=== PATIENT | male | born 1965 | race Caucasian/White ===

== ENCOUNTER 2024-03-29 09:39 | Inpatient (IN) ==
--- OUTSIDE RECORDS SUMMARY | 2024-03-29 09:44 | External Medical Summary | Summary of Care ---
Author Name Unknown Organization [facility] Address [address] [place] [address] Phone [phone] Care Team Providers Care Elevator Constructor Hydraulic Name Role Phone Araceli Calderón DO Primary Care Provider [phone] Reason for Visit * Reason Comments eRx-Medication Refill Encounter Details Date Type Department Care Team (Late st Contact Info) Description 03/01/2024 Refill Family Practice [facility] [address] [place] [address] Araceli Calderón DO [address] [place] [address] Dyslipidemia; Atherosclerosis of [place] coronary artery of [place] heart without angina pectoris Allergies Active Allergy Reactions Criticality Noted Date Comments Metoprolol Itching 06/13/2011 documented as of this encounter (statuses as of 03/02/2024) Medications Medication Sig Dispensed Refills Start Date End Date Status ASPIRIN 81 MG PO CHEWIndications:Oth er specified forms of chronic ischemic heart disease One pill by mouth once a day with food 100 Tab 5 12/11/2010 Active MULTIVITAMINS PO TABS one tablet daily Active FISH OIL 1000 MG PO CPDR one daily Active VITAMIN B COMPLEX PO TABS one tablet daily Active Sildenafil Citrate 50 MG Oral TabletIndications:V asculogenic erectile dysfunction, unspecified vasculogenic erectile dysfunction type Take 1 Tablet by mouth daily as needed for Erectile Dysfunction. 10 Tablet 3 03/25/2023 Active Levothyroxine Sodium 88 MCG Oral Tablet (Levoxyl)Indication s:Acquired hypothyroidism Take 1 Tablet by mouth in the morning. (at least 30 min prior to breakfast or other meds). 90 Tablet 3 07/09/2023 Active Rosuvastatin Calcium 40 MG Oral Tablet (Crestor)Indication s:Dyslipidemia,Athe rosclerosis of [place] coronary artery of [place] heart without angina pectoris Take 1 Tablet by mouth in the morning. 90 Tablet 1 03/02/2024 Active Rosuvastatin Calcium 40 MG Oral Tablet (Crestor)Indication s:Dyslipidemia,Athe rosclerosis of [place] coronary artery of [place] heart without angina pectoris Take 1 Tablet by mouth in the morning. 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 with angina pectoris 05/12/2018 Acquired hypothyroidism 05/12/2018 Coronary atherosclerosis 06/13/2011 Overview: Seeing dr lehman with LAD 90 % S/P angioplasty with stent 06/13/2011 OTHER Overview: LAD mid / 90 % block documented as of this encounter (statuses as of 03/02/2024) Resolved Problems Problem Noted Date Diagnosed Date Resolved Date Dyslipidemia, goal LDL below 130 06/13/2011 documented as of this encounter (statuses as of 03/02/2024) Immunizations Name Administration Dates Next Due Covid-19 Ad26, Single Dose (Trevor/J&J) 021 TDAP (age 10 and older)(Boostrix) 11/07/2014 documented as of this encounter Social History Tobacco Use Types Packs/Day Years Used Date Smoking Tobacco: Never Smokeless Tobacco: Never Alcohol Use Standard Drinks/Week Comments Yes 1.7 (1 standard drink = 0.6 oz p ure alcohol) 1x week PHQ-2 Answer Date Recorded PHQ-2 Score 0 05/15/2020 Utilities Answer Date Recorded Do you have trouble paying y our heating, water, or electric bill? (Adult - for ages 18 years and over) Not on file 01/13/2024 Is your family able to pay t he heat, water, or electric bill? (Household - for ages 0-17 years) Not on file 01/13/2024 Does your family have access to good internet? (Household - for ages 0-17 years) Not on file 01/13/2024 Social Connections Answer Date Recorded How often do you feel lonely or isolated from those around you? (Adult - for ages 18 years and over) Not on file 01/13/2024 Sex and Gender Information Value Date Recorded Sex Assigned at Not on file Gender Identity Not on file Sexual Orientation Not on file Job Start Date Occupation Industry Not on file Not on file Not on file documented as of this encounter Miscellaneous Notes * Telephone Encounter - Miller Silva [facility] - 03/02/2024 12:21 PM EDT Signed Prescriptions: Disp Refills Rosuvastatin Calcium 40 MG Oral Tablet (Cr*90 Tab*1 Sig: Take 1 Tablet by mouth in the morning.Authorizing Provider: ARACELI CALDERÓN User: MILLER SILVA documented in this encounter Plan of Treatment Upcoming Encounters Date Type Department Care Team (Late st Contact Info) Description 05/19/2024 3:20 PM EDT Office Visit Family Practice [facility] [address] [place] [address] Araceli Calderón DO [address] [place] [address] Scheduled Procedures Name Priority Associated Diagnoses Date/Ti me COLONOSCOPY FLEXIBLE PROXIMA L DIAGNOSTIC Recall Special screening for malignant neoplasms, colon Health Maintenance Due Date Last Done Comments Hepatitis B Vaccine (1 of 3 - 19+ 3-dose series) 10/27/1983 Cologuard 2009 Fecal Occult Blood Test 2009 Sigmoidoscopy 2009 Zoster Vaccines (1 of 2) 2014 Depression Screening 05/15/2021 05/15/2020 COVID-19 Vaccine (2 - 2022- season) 2023 01/11/2021 Influenza Vaccine (FLU shot) (#1) 2024 TSH 07/04/2024 07/04/2023, 12/03/2022, 06/29/2021, Additional history exists DTaP,Tdap,and Td Vaccines (2 - Td or Tdap) 11/07/2024 11/07/2014 Colonoscopy 12/21/2024 12/21/2014, 12/21/2014 Colorectal Cancer Screening 12/21/2024 Diabetes Screening 07/04/2026 07/04/2023, 1 09/05/2021, 06/29/2021, Additional history exists HPV (Gardasil) Vaccine Aged Out No lo nger eligible based on patient's age to complete this topic MENINGOCOCCAL (MENACTRA/MENVEO) Aged Out No longer eligible based on patient's age to complete this topic Pneumococcal Vaccine: Pediatrics (0 to 5 Years) and At-Risk Patients (6 to 64 Years) Aged Out No longer eligible based on patient's age to complete this topic documented as of this encounter Medical Devices Not on filedocumented as of this encounter Visit Diagnoses Diagnosis Dyslipidemia Other and unspecified hyperlipidemia Atherosclerosis of [place] coronary artery of [place] heart without angina pectoris documented in this encounter Care Teams Elevator Constructor Hydraulic Relationship Specialty Start Date End Date Araceli Calderón DO [address] [place] [address] PCP - General Family Medicine 05/11/19 documented as of this encounter
[2024-03-29 10:04] LABS: iSTAT Creatinine 1.2 mg/dl (0.6-1.3); iSTAT Ionized Calcium 1.24 mmol/l (1.12-1.32); iSTAT Potassium 3.9 mmol/L (3.3-5.0)
[2024-03-29] MEDS: OPTIRAY 320 100ml IV ONE (10:23)
--- NOTE | 2024-03-29 10:23 | XRay Report ---
AP PELVIS ONE VIEW HISTORY: trauma COMPARISON: Pelvis radiograph 03/15/2016. FINDINGS: There is no fracture or dislocation. Soft tissues are unremarkable. No radiopaque foreign b odies. IMPRESSION: No fractures. ACT 112: Negative or not required by law. Electronically signed by: Nate Vigil M.D. 03/29/2024 10:22 AM
--- NOTE | 2024-03-29 10:23 | XRay Report ---
XR chest 1V portable HISTORY: trauma COMPARISON: Chest 01/16/2012. FINDINGS: No pneumothorax. No pleural effusions. The lungs are clear. The cardiac silhouette is top n ormal in size. There are old left-sided rib fractures. There is there is a displaced acute right ante rior fifth rib fracture. IMPRESSION: Displaced acute right anterior fifth rib fracture. No pneumothorax. ACT 112: Negative or not required by law. Electronically signed by: Nate Vigil M.D. 03/29/2024 10:21 AM
--- NOTE | 2024-03-29 10:32 | Emergency Department Note ---
Impression & Plan Right-sided chest pain, Right rib fracture, Fall, Abrasion ED Provider Note NAME: ALAN CLIFFORD AGE: 58 SEX: M : 1965 ARRIVES VIA: Ambulance INFORMANT: [Patient][ems, nursing] ED PROVIDER(S): [Gómez Julio MD] CHIEF COMPLAINT: Trauma HISTORY OF PRESENT ILLNESS: The patient is a 58-year-old male who a short time ago fell about 10 feet as the ladder he was on kicked out. He fell onto the right side and complains of some right rib/shoulder pain. He may have struck his head but has no headache. He has no neck pain. The patient denies feeling short of breath. No abdominal pain. He does have some abrasions to his lower extremities but was able to stand on both legs without difficulty. He denies any back discomfort. He does take a baby aspirin, no other thinning agents. Tetanus status is current. PMHx/PSHx/Social Hx: See Below PHYSICAL EXAM: GENERAL: Patient is in no acute distress. HEENT: There is an abrasion/superficial laceration in the area of the left mormonism. No laceration requiring repair, no bony step-off. There appears to be an abrasion to the underside of the chin, no laceration requiring repair. Bite is normal. NECK: No stridor, stiff collar in place. LUNGS: Clear to auscultation bilaterally, no wheeze, no rhonchi, breath sounds equal. Chest: Tender to the right mid lateral/posterior ribs. No crepitus. HEART: Without murmurs gallops or rubs, regular rate and rhythm. ABDOMEN: Soft, nontender, no peritonitis. No contusions. EXTREMITIES: Patient does have a contusion/abrasion to the posterior right elbow. There is no pain to move the elbow joint. There is no pain to palpate or move the wrist or shoulder on the right. There is a strong distal right radial pulse. The radial ulnar and median nerves on the right are intact. There is an abrasion to the palmar aspect of the proximal left fourth finger, no pain to move the finger, no deformity. The patient does have abrasions to both anterior mid to distal shins. No deformities. NEUROLOGIC: Oriented x 3, no acute motor or sensory deficits, no focal weakness. SKIN: No jaundice, no diaphoresis. Pelvis: Stable with rock. DIFFERENTIAL DIAGNOSIS: Intracranial injury, C-spine injury, rib fracture, pneumothorax, intra-abdominal injury, extremity injury, among others. EMERGENCY DEPARTMENT PROCEDURES: MEDICAL DECISION MAKING: There is no leukocytosis or concerning anemia. There is a normal platelet count. No renal failure or significant electrolyte abnormality. No concerning liver enzyme elevation. Urinalysis does not show findings of infection. Chest x-ray shows at least 1 rib fracture on the right. No pneumothorax or pulmonary contusion. Pelvis film shows no fracture. Right elbow film shows no fracture. The patient did have a CT of the head performed, there is no acute bleed or mass effect. C-spine CT did not show any acute fracture. CT imaging of the chest and abdomen/pelvis were performed. There were 5 rib fractures on the right. There was no intra-abdominal injury. The patient received IV saline, 125 cc/h. He was ordered for IV morphine for pain as needed. He was given some IV Tylenol. I did speak with the [facility] ED in [place]. The patient was accepted to their facility given the number of rib fractures found. The patient did sign consent for transfer. The appropriate paperwork was completed and signed. I was informed several hours into his ED stay that there was no transport today to [facility]. He would need to be transferred sometime tomorrow. Given this information, the patient will need to be hospitalized at our facility until transport is available. I did speak with case management, I did speak with the on-call hospitalist. The patient is aware of his need for admission to [facility] for tonight given the lack of ambulance availability. In short, the patient is quite stable but does have several rib fractures on the right. He currently is oxygenating well without supplemental O2. He has several extremity abrasions which should heal with just conservative management. Of note, I did remove the stiff cervical collar. The patient could move his neck freely with really no pain. His neck was considered clinically clear. Prior/Outside records/notes reviewed: Today's EMS notes describing his presentation and transport to this hospital. ECG per my interpretation: Indication was trauma. The ECG shows a sinus bradycardia with a first-degree AV block. The rate is 56. There is no acute ST elevation, no PVCs. There is some poor R wave progression. QTc is 389. Continuous Cardiac Monitoring per my interpretation: An order was placed for continuous cardiac monitoring. The monitor shows a rate of 65 with sinus rhythm with a first AV block. Imaging/x-ray results per my interpretation: Chest x-ray does not show pneumothorax. There is a right fifth or sixth rib fracture noted. No pleural effusion seen. Pelvis film does not show fracture or hip dislocation. Right elbow film does not show fracture or dislocation. Chronic Medical/Social conditions affecting care: Care/Management discussed with: [facility] ED/trauma-Dr. Fried. [facility] hospitalist-Dr. Salazar Level of care consideration(s): After review of the information above and other included data: -- Patient requires transfer to a higher level trauma center. Critical Care Note: I have personally spent 54 minutes of critical care time in the direct management of this patient. This includes bedside care, interpretation of diagnostic studies, and testing, discussion with consultants, patient, and family members, and other required patient management activities. This 54 minutes is in excess of all separately billable procedures. DISPOSITION: Eventual transfer to [facility] however, given the lack of ambulance availability, admission to our facility overnight. Past Med/Surg History Problem List Abrasion (Acute) Fall (Acute) Right rib fracture (Acute) Right-sided chest pain (Acute) Medical History Coronary artery disease Social History Smoking Status: Never smoker Allergies Allergies Allergy/AdvReac Type Severity Reaction Status Date / Time metoprolol Allergy Intermediate ITCHY Verified 01/11/15 09:56 Home Meds Home Medications Medication Instructions Recorded Confirmed ASPIRIN (ASPIRIN CHEWABLE) 81 mg PO QAM ##0 01/16/12 03/29/24 B12 1 tab PO DIRECTED 03/29/24 03/29/24 Fish Oil 1 cap PO DIRECTED 03/29/24 03/29/24 levothyroxine 88 mcg tablet 88 mcg PO QAM 03/29/24 03/29/24 multivitamin 1 tab PO DAILY 03/29/24 03/29/24 rosuvastatin 40 mg tablet 40 mg PO DAILY 03/29/24 03/29/24 Results & Data (ED) Vital Signs Vital Signs - 24 hr 03/29/24 09:32 03/29/24 09:32 03/29/24 09:32 Temperature 36.5 C Temperature Source Oral Pulse Rate 70 Pulse Rate [Apical] 70 Pulse Rate from SpO2 Sensor Pulse Rhythm [Apical] Regular Pulse Strength [Bilateral] Respiratory Rate 16 16 Blood Pressure 137/86 Blood Pressure [Left Arm] Blood Pressure Mean 103 Blood Pressure Mean [Left Arm] Pulse Oximetry 98 97 98 Oxygen Delivery Method Room Air Room Air Room Air Oxygen Flow Rate Sepsis Recent Fever Within 48 Hours No Sepsis New/Unexplained Change in Mental Status No Sepsis Action Taken by Nursing No Action Required 03/29/24 09:59 03/29/24 10:04 03/29/24 10:04 Temperature 36.5 C Temperature Source Pulse Rate 72 69 Pulse Rate [Apical] 62 Pulse Rate from SpO2 Sensor Pulse Rhythm [Apical] Pulse Strength [Bilateral] Normal Respiratory Rate 16 16 Blood Pressure 137/86 Blood Pressure [Left Arm] Blood Pressure Mean Blood Pressure Mean [Left Arm] Pulse Oximetry 96 96 97 Oxygen Delivery Method Room Air Room Air Room Air Oxygen Flow Rate 0 Sepsis Recent Fever Within 48 Hours Sepsis New/Unexplained Change in Mental Status Sepsis Action Taken by Nursing 03/29/24 10:06 03/29/24 10:14 03/29/24 10:54 Temperature Temperature Source Pulse Rate 72 65 73 Pulse Rate [Apical] Pulse Rate from SpO2 Sensor 72 74 Pulse Rhythm [Apical] Pulse Strength [Bilateral] Respiratory Rate 19 15 Blood Pressure Blood Pressure [Left Arm] Blood Pressure Mean Blood Pressure Mean [Left Arm] Pulse Oximetry 97 96 Oxygen Delivery Method Oxygen Flow Rate Sepsis Recent Fever Within 48 Hours Sepsis New/Unexplained Change in Mental Status Sepsis Action Taken by Nursing 03/29/24 11:03 03/29/24 11:12 03/29/24 11:36 Temperature Temperature Source Pulse Rate 73 78 Pulse Rate [Apical] 65 Pulse Rate from SpO2 Sensor 73 79 Pulse Rhythm [Apical] Pulse Strength [Bilateral] Respiratory Rate 14 15 16 Blood Pressure Blood Pressure [Left Arm] 147/86 H Blood Pressure Mean Blood Pressure Mean [Left Arm] 106 Pulse Oximetry 97 98 99 Oxygen Delivery Method Room Air Oxygen Flow Rate Sepsis Recent Fever Within 48 Hours Sepsis New/Unexplained Change in Mental Status Sepsis Action Taken by Nursing 03/29/24 11:54 03/29/24 12:18 03/29/24 12:24 Temperature Temperature Source Pulse Rate 71 64 69 Pulse Rate [Apical] Pulse Rate from SpO2 Sensor Pulse Rhythm [Apical] Pulse Strength [Bilateral] Respiratory Rate 13 14 12 Blood Pressure Blood Pressure [Left Arm] Blood Pressure Mean Blood Pressure Mean [Left Arm] Pulse Oximetry Oxygen Delivery Method Oxygen Flow Rate Sepsis Recent Fever Within 48 Hours Sepsis New/Unexplained Change in Mental Status Sepsis Action Taken by Nursing 03/29/24 12:33 03/29/24 12:48 03/29/24 13:06 Temperature Temperature Source Pulse Rate 75 65 65 Pulse Rate [Apical] Pulse Rate from SpO2 Sensor Pulse Rhythm [Apical] Pulse Strength [Bilateral] Respiratory Rate 19 12 15 Blood Pressure 135/79 Blood Pressure [Left Arm] Blood Pressure Mean 97 Blood Pressure Mean [Left Arm] Pulse Oximetry Oxygen Delivery Method Oxygen Flow Rate Sepsis Recent Fever Within 48 Hours Sepsis New/Unexplained Change in Mental Status Sepsis Action Taken by Nursing 03/29/24 14:42 03/29/24 15:00 Temperature Temperature Source Pulse Rate 59 L Pulse Rate [Apical] 59 L Pulse Rate from SpO2 Sensor Pulse Rhythm [Apical] Pulse Strength [Bilateral] Respiratory Rate 16 14 Blood Pressure 130/76 Blood Pressure [Left Arm] 130/76 Blood Pressure Mean 94 Blood Pressure Mean [Left Arm] 94 Pulse Oximetry 95 97 Oxygen Delivery Method Room Air Room Air Oxygen Flow Rate Sepsis Recent Fever Within 48 Hours Sepsis New/Unexplained Change in Mental Status Sepsis Action Taken by [facility] Medications Current Medication List: was personally reviewed by me Laboratory Data Attestation: I reviewed the patient's lab results. 03/29/24 09:45 03/29/24 09:45 Lab Results 03/29/24 03/29/24 03/29/24 Range/Units 09:45 09:51 Unknown WBC 5.12 (4.8-10.8) K/ul RBC 5.08 (4.70-6.10) M/uL Hgb 14.9 (14.0-18.0) g/dl POC Hgb 15.0 (14.0-18.0) g/dl Hct 44.8 (42.0-52.0) % POC Hct 44 (42-52) % MCV 88.2 (80.0-100.0) fL MCH 29.3 (25.0-34.0) pg MCHC 33.3 (32.0-36.0) g/dL RDW Std Deviation 43.0 (36.4-46.3) fL RDW Coeff of Ledy 13.2 (11.5-14.5) % Plt Count 183 (130-400) K/uL MPV 10.3 (9.4-12.4) fL Immature Gran % (Auto) 0.4 % Neut % (Auto) 50.3 % Lymph % (Auto) 38.1 % [place] % (Auto) 9.0 % Eos % (Auto) 1.8 % Baso % (Auto) 0.4 % Neut # (Auto) 2.58 (1.40-6.50) K/uL Lymph # (Auto) 1.95 (1.20-3.40) K/uL [place] # (Auto) 0.46 (0.11-0.59) K/uL Eos # (Auto) 0.09 (0.00-0.50) K/uL Baso # (Auto) 0.02 (0.00-0.20) K/uL Immature Gran # (Auto) 0.02 (0.01-0.20) K/uL POC Sodium 141 (135-144) mmol/L Sodium 139 (136-145) mmol/L POC Potassium 3.9 (3.3-5.0) mmol/L Potassium 3.9 (3.5-5.1) mmol/L POC Chloride 102 (101-112) mmol/L Chloride 105 (98-107) mmol/L Carbon Dioxide 29 (21-32) mmol/L POC Total CO2 24 (24-31) mmol/L Anion Gap 5 (3-11) POC Anion Gap 20.0 (16-25) mmol/L POC BUN 13 (7-18) mg/dl BUN 14 (6-23) mg/dl Creatinine 1.12 (0.6-1.4) mg/dl POC Creatinine 1.2 (0.6-1.3) mg/dl Est Cr Clr Drug Dosing 76.9 ml/min Est GFR ( Amer) 82.9 ml/min Est GFR (Non-Af Amer) 71.5 ml/min BUN/Creatinine Ratio 12.5 (10-20) Glucose 154 H (70-99(Fasting)) mg/dl POC Glucose (other) 149 H (70-99) mg/dl Calcium 9.7 (8.6-10.3) mg/dl POC Ioniz Calcium Broderick 1.24 (1.12-1.32) mmol/l Total Bilirubin 0.6 (0.2-1.0) mg/dl AST 31 (13-39) U/L ALT 29 (7-52) U/L Alkaline Phosphatase 51 (34-104) U/L Total Protein 6.7 (6.0-8.3) gm/dl Albumin 4.3 (3.4-5.0) gm/dl Globulin 2.4 L (2.5-4.0) gm/dl Albumin/Globulin Ratio 1.8 (0.9-2) Urine Color Dark Yellow Urine Appearance Clear (Clear) Urine pH 8.0 H (4.5-7.5) Ur Specific [place] 1.041 H (1.000-1.030) Urine Protein Negative (Negative) Urine Glucose (UA) Negative (Negative) Urine Ketones Negative (Negative) Urine Blood Negative (Negative) Urine Nitrite Negative (Negative) Urine Bilirubin Negative (Negative) Urine Urobilinogen Negative (Negative) Ur Leukocyte Esterase Negative (Negative) Administered Medications Sodium Chloride (Nss) 1,000 mls @ 125 mls/hr IV .Q8H BRAD Stop: 04/28/24 11:29 Last Admin: 03/29/24 11:42 Dose: 125 mls/hr Documented By: TOMASZ Discontinued Medications Acetaminophen (Ofirmev) 1,000 mg in 100 mls @ 400 mls/hr IV NOW STA Stop: 03/29/24 11:35 Last Infusion: 03/29/24 14:27 Dose: Infused Documented By: Admin: 03/29/24 11:42 Dose: 400 mls/hr Documented By: TOMASZ Ioversol (Optiray 320 100ml) 94 ml IV ONCE ONE Stop: 03/29/24 10:24 Last Admin: 03/29/24 10:23 Dose: 94 ml Documented By: CHRISTIANO Imaging Data Radiologist's Impression: Chest X-Ray 03/29/24 09:59 XR chest 1V portable HISTORY: trauma COMPARISON: Chest 01/16/2012. FINDINGS: No pneumothorax. No pleural effusions. The lungs are clear. The cardiac silhouette is top normal in size. There are old left-sided rib fractures. There is there is a displaced acute right anterior fifth rib fracture. IMPRESSION: Displaced acute right anterior fifth rib fracture. No pneumothorax. ACT 112: Negative or not required by law. Electronically signed by: Nate Vigil M.D. 03/29/2024 10:21 AM Pelvis X-Ray 03/29/24 09:59 AP PELVIS ONE VIEW HISTORY: trauma COMPARISON: Pelvis radiograph 03/15/2016. FINDINGS: There is no fracture or dislocation. Soft tissues are unremarkable. No radiopaque foreign bodies. IMPRESSION: No fractures. ACT 112: Negative or not required by law. Electronically signed by: Nate Vigil M.D. 03/29/2024 10:22 AM Abdomen/Pelvis CT 03/29/24 10:[address] WITH CONTRAST, ABDOMEN AND PELVIS CT WITH INTRAVENOUS CONTRAST CT DOSE: HISTORY: Trauma TECHNIQUE: Multiaxial CT images of the chest, abdomen, and pelvis were performed following the intravenous administration of contrast. A dose lowering technique was utilized adhering to the principles of ALARA. COMPARISON: None. FINDINGS: Chest CT: There are acute right anterior third through seventh rib fractures, a few of which are mildly displaced. The central airways are patent. No definite right-sided pneumothorax. A few punctate foci of gas within the right anterior chest wall and a punctate focus of retrosternal gas are noted and do not appear to be within the pleural space. Mild dependent changes seen within the lungs posteriorly. Otherwise, the lungs are clear. Nondisplaced fractures within the right anterior fourth and fifth rib cartilages. Small amount of extrapleural hemorrhage surrounding the right anterior rib fractures. No mediastinal hematoma or lymphadenopathy. No pleural or pericardial effusions. Normal thoracic aorta. The central pulmonary arteries are patent. The heart is normal in size. Normal esophagus and thyroid gland. Abdomen/pelvis CT: No pneumoperitoneum. No pneumatosis. No acute fractures within the abdomen or pelvis. The liver, gallbladder, pancreas, spleen, adrenal glands, and right kidney are unremarkable. There is a punctate stone within the left kidney. Otherwise, left kidney enhances normally. No hydronephrosis. The main portal vein is patent. Calcified plaque within the normal caliber abdominal aorta. No retroperitoneal hematoma or lymphadenopathy. No pelvic free fluid. The bladder is unremarkable. No bowel wall thickening or obstruction. Normal appendix. IMPRESSION: 1. Multiple acute right anterior rib and cartilage fractures as described above. 2. A few punctate foci of gas and a small amount of hemorrhage within the right anterior chest wall surrounding the rib fractures. No definite pneumothorax. 3. No acute traumatic process within the abdomen or pelvis. 4. Left sided nephrolithiasis. No hydronephrosis ACT 112: Negative or not required by law. Electronically signed by: Nate Vigil M.D. 03/29/2024 10:[address] 03/29/24 10:[address] DOSE: 2747.95 mGy.cm HISTORY: Trauma TECHNIQUE: Multiaxial CT images of the cervical spine were performed and reformatted in the sagittal and coronal plane without the use of contrast. A dose lowering technique was utilized adhering to the principles of ALARA. COMPARISON: None. FINDINGS: No fractures. No subluxation. Prevertebral soft tissues and the C1-C2 interval are intact. No pneumothorax. IMPRESSION: No fractures within the cervical spine. ACT 112: Negative or not required by law. Electronically signed by: Nate Vigil M.D. 03/29/2024 10:[address] 03/29/24 10:[address] WITH CONTRAST, ABDOMEN AND PELVIS CT WITH INTRAVENOUS CONTRAST CT DOSE: HISTORY: Trauma TECHNIQUE: Multiaxial CT images of the chest, abdomen, and pelvis were performed following the intravenous administration of contrast. A dose lowering technique was utilized adhering to the principles of ALARA. COMPARISON: None. FINDINGS: Chest CT: There are acute right anterior third through seventh rib fractures, a few of which are mildly displaced. The central airways are patent. No definite right-sided pneumothorax. A few punctate foci of gas within the right anterior chest wall and a punctate focus of retrosternal gas are noted and do not appear to be within the pleural space. Mild dependent changes seen within the lungs posteriorly. Otherwise, the lungs are clear. Nondisplaced fractures within the right anterior fourth and fifth rib cartilages. Small amount of extrapleural hemorrhage surrounding the right anterior rib fractures. No mediastinal hematoma or lymphadenopathy. No pleural or pericardial effusions. Normal thoracic aorta. The central pulmonary arteries are patent. The heart is normal in size. Normal esophagus and thyroid gland. Abdomen/pelvis CT: No pneumoperitoneum. No pneumatosis. No acute fractures within the abdomen or pelvis. The liver, gallbladder, pancreas, spleen, adrenal glands, and right kidney are unremarkable. There is a punctate stone within the left kidney. Otherwise, left kidney enhances normally. No hydronephrosis. The main portal vein is patent. Calcified plaque within the normal caliber abdominal aorta. No retroperitoneal hematoma or lymphadenopathy. No pelvic free fluid. The bladder is unremarkable. No bowel wall thickening or obstruction. Normal appendix. IMPRESSION: 1. Multiple acute right anterior rib and cartilage fractures as described above. 2. A few punctate foci of gas and a small amount of hemorrhage within the right anterior chest wall surrounding the rib fractures. No definite pneumothorax. 3. No acute traumatic process within the abdomen or pelvis. 4. Left sided nephrolithiasis. No hydronephrosis ACT 112: Negative or not required by law. Electronically signed by: Nate Vigil M.D. 03/29/2024 10:[address] 03/29/24 10:[address] DOSE: HISTORY: Trauma TECHNIQUE: Multiaxial CT images of the head were performed without the use of intravenous contrast. Automated exposure control was utilized for this study. A dose lowering technique was utilized adhering to the principles of ALARA. Comparison: None. Findings: The paranasal sinuses and mastoid air cells are clear. The calvarium and skull base are intact. The ventricles and sulci are within normal limits. There is no mass, hematoma, midline shift, or acute infarct. Impression: No acute intracranial abnormality. ACT 112: Negative or not required by law. Electronically signed by: Nate Vigil M.D. 03/29/2024 10:39 AM Elbow X-Ray 03/29/24 10:32 XR elbow RT min 3V routine CLINICAL HISTORY: fall, trauma COMPARISON STUDY: None. FINDINGS: No fracture or dislocation within the right elbow. No definite elbow effusion. Soft tissues are unremarkable. IMPRESSION: No fracture or dislocation within the right elbow. ACT 112: Negative or not required by law. Electronically signed by: Nate Vigil M.D. 03/29/2024 11:16 AM Discharge Plan Visit Data Chief Complaint: Trauma Stated Complaint: fall 10ft ED Provider: Gómez Julio Discharge Problem: Right-sided chest pain, Right rib fracture, Fall, Abrasion Patient Disposition: Admitted As Inpatient Condition: Fair Forms Stand Alone Forms: [employer] Prescriptions Prescriptions: No Action ASPIRIN (ASPIRIN CHEWABLE) 81 MG CHEWABLE TAB 81 mg PO QAM Qty: 0 levothyroxine 88 mcg tablet 88 mcg PO QAM rosuvastatin 40 mg tablet 40 mg PO DAILY B12 1 tab PO DIRECTED Rx Instructions: otc unknown dose multivitamin [Multi-Vitamin] Tablet 1 tab PO DAILY Fish Oil 1 cap PO DIRECTED Rx Instructions: otc unknown dose Referrals Referrals: Gómez Levine MD [Physician] - Discharge Problem: Right rib fracture Qualifiers: Encounter type: initial encounter Rib fracture type: multiple ribs Fracture type: closed Qualified Code(s): S22.41XA - Multiple fractures of ribs, right side, initial encounter for closed fracture Fall Qualifiers: Encounter type: initial encounter Qualified Code(s): W19.XXXA - Unspecified fall, initial encounter
[2024-03-29 10:36] LABS: Albumin Globulin Ratio 1.8 (0.9-2); Albumin Level 4.3 gm/dl (3.4-5.0); BUN Creatinine Ratio 12.5 (10-20); Bilirubin,Total 0.6 mg/dl (0.2-1.0); Calcium 9.7 mg/dl (8.6-10.3); Creatinine Clr Calc Pharmacy 76.9 ml/min; Est GFR (African American) 82.9 ml/min; Est GFR (Non-African American) 71.5 ml/min; Globulin 2.4 gm/dl (2.5-4.0); Potassium 3.9 mmol/L (3.5-5.1); Total Protein 6.7 gm/dl (6.0-8.3)
[2024-03-29 10:37] LABS: Basophils # (auto) 0.02 K/uL (0.00-0.20); Basophils % (auto) 0.4 %; Eosinophils # (auto) 0.09 K/uL (0.00-0.50); Eosinophils % (auto) 1.8 %; Hematocrit (blood only) 44.8 % (42.0-52.0); Hemoglobin 14.9 g/dl (14.0-18.0); Immature Granulocytes # (auto) 0.02 K/uL (0.01-0.20); Immature Granulocytes % (auto) 0.4 %; Lymphocytes # (auto) 1.95 K/uL (1.20-3.40); Lymphocytes % (auto) 38.1 %; Mean Corpuscular Hemoglobin 29.3 pg (25.0-34.0); Mean Corpuscular Hgb Conc 33.3 g/dL (32.0-36.0); Mean Corpuscular Volume 88.2 fL (80.0-100.0); Mean Platelet Volume 10.3 fL (9.4-12.4); Monocytes # (auto) 0.46 K/uL (0.11-0.59); Neutrophils # (auto) 2.58 K/uL (1.40-6.50); Neutrophils % (auto) 50.3 %; Platelet Count 183 K/uL (130-400); RDW Coefficient of Variation 13.2 % (11.5-14.5); Red Blood Count 5.08 M/uL (4.70-6.10); White Blood Count 5.12 K/ul (4.8-10.8)
--- NOTE | 2024-03-29 10:42 | CT Scan Report ---
HEAD CT NONCONTRAST CT DOSE: HISTORY: Trauma TECHNIQUE: Multiaxial CT images of the head were performed without the use of intravenous contrast. A utomated exposure control was utilized for this study. A dose lowering technique was utilized adheri ng to the principles of ALARA. Comparison: None. Findings: The paranasal sinuses and mastoid air cells are clear. The calvarium and skull base are int act. The ventricles and sulci are within normal limits. There is no mass, hematoma, midline shift, or acute infarct. Impression: No acute intracranial abnormality. ACT 112: Negative or not required by law. Electronically signed by: Nate Vigil M.D. 03/29/2024 10:39 AM
--- NOTE | 2024-03-29 10:44 | CT Scan Report ---
CERVICAL SPINE CT CT DOSE: 2747.95 mGy.cm HISTORY: Trauma TECHNIQUE: Multiaxial CT images of the cervical spine were performed and reformatted in the sagittal and coronal plane without the use of contrast. A dose lowering technique was utilized adhering to th e principles of ALARA. COMPARISON: None. FINDINGS: No fractures. No subluxation. Prevertebral soft tissues and the C1-C2 interval are intact. No pneumothorax. IMPRESSION: No fractures within the cervical spine. ACT 112: Negative or not required by law. Electronically signed by: Nate Vigil M.D. 03/29/2024 10:43 AM
--- NOTE | 2024-03-29 10:57 | CT Scan Report ---
CHEST CT WITH CONTRAST, ABDOMEN AND PELVIS CT WITH INTRAVENOUS CONTRAST CT DOSE: HISTORY: Trauma TECHNIQUE: Multiaxial CT images of the chest, abdomen, and pelvis were performed following the intrav enous administration of contrast. A dose lowering technique was utilized adhering to the principles of ALARA. COMPARISON: None. FINDINGS: Chest CT: There are acute right anterior third through seventh rib fractures, a few of which are mild ly displaced. The central airways are patent. No definite right-sided pneumothorax. A few punctate fo ci of gas within the right anterior chest wall and a punctate focus of retrosternal gas are noted and do not appear to be within the pleural space. Mild dependent changes seen within the lungs posterior ly. Otherwise, the lungs are clear. Nondisplaced fractures within the right anterior fourth and fifth rib cartilages. Small amount of extrapleural hemorrhage surrounding the right anterior rib fractures . No mediastinal hematoma or lymphadenopathy. No pleural or pericardial effusions. Normal thoracic ao rta. The central pulmonary arteries are patent. The heart is normal in size. Normal esophagus and thy roid gland. Abdomen/pelvis CT: No pneumoperitoneum. No pneumatosis. No acute fractures within the abdomen or pelv is. The liver, gallbladder, pancreas, spleen, adrenal glands, and right kidney are unremarkable. Ther e is a punctate stone within the left kidney. Otherwise, left kidney enhances normally. No hydronephr osis. The main portal vein is patent. Calcified plaque within the normal caliber abdominal aorta. No retroperitoneal hematoma or lymphadenopathy. No pelvic free fluid. The bladder is unremarkable. No arsen wel wall thickening or obstruction. Normal appendix. IMPRESSION: 1. Multiple acute right anterior rib and cartilage fractures as described above. 2. A few punctate foci of gas and a small amount of hemorrhage within the right anterior chest wall s urrounding the rib fractures. No definite pneumothorax. 3. No acute traumatic process within the abdomen or pelvis. 4. Left sided nephrolithiasis. No hydronephrosis ACT 112: Negative or not required by law. Electronically signed by: Nate Vigil M.D. 03/29/2024 10:54 AM
--- NOTE | 2024-03-29 11:18 | XRay Report ---
XR elbow RT min 3V routine CLINICAL HISTORY: fall, trauma COMPARISON STUDY: None. FINDINGS: No fracture or dislocation within the right elbow. No definite elbow effusion. Soft tissues are unremarkable. IMPRESSION: No fracture or dislocation within the right elbow. ACT 112: Negative or not required by law. Electronically signed by: Nate Vigil M.D. 03/29/2024 11:16 AM
[2024-03-29] MEDS ORDERED: MoRPHine SULFATE 4 MG/ML 1 ML CARP\\VIAL IV PRN (11:21)
[2024-03-29] MEDS: SODIUM CHLORIDE 0.9% 1,000 ML IV SCH (11:42)
[2024-03-29] MEDS: ACETAMINOPHEN 1,000 MG/100 ML VIAL IV STA (11:42)
[2024-03-29 11:52] LABS: Appearance Urine Clear (Clear); Bilirubin Urine Negative (Negative); Blood Urine Negative (Negative); Color Urine Dark Yellow; Glucose Urine UA Negative (Negative); Ketones Urine Negative (Negative); Leukocyte Esterase Urine Negative (Negative); Nitrite Urine Negative (Negative); Protein Urine Negative (Negative); Specific Gravity Urine 1.041 (1.000-1.030); Urobilinogen Urine Negative (Negative)
[2024-03-29] MEDS ORDERED: MoRPHine SULFATE 2 MG/ML CARP IV PRN (16:59)
[2024-03-29] MEDS ORDERED: KETOROLAC TROMETHAMINE 15 MG/ML VIAL IV PRN (16:59)
--- NOTE | 2024-03-29 16:59 | History & Physical Report ---
Date of Service March 29, 2024 Assessment & Plan (1) Right rib fracture: (2) Fall: Plan Patient presents from home after he felt down from a ladder; fell onto his right side. He reported some anterior chest pain. Imaging studies during the ED stay showed multiple acute anterior rib fracture and cartilage fracture. He was being planned to transfer to [facility] and was accepted for transfer. However, transportation was not available; patient was then referred to be a dmitted here. Pain control with Tylenol, Toradol and morphine for mild to moderate and severe pain. Incentive spirometry Monitor for oxygenation, severe chest pain, abdominal pain. Chronic condition CAD status post stent -continue on aspirin, rosuvastatin Dyslipidemia - rosuvastatin Patient agreeable to stay in the hospital here. Possible transfer to [facility] tomorrow after transportation is available. Full code DVT SCDs Time spent evaluating patient, direct bedside care, chart review, placing orders, interpretation of diagnostic studies, discussion with consultants, pat ient, and family members, as well as other required patient management activities is 60 minutes Please note the above document was generated using voice recognition software. It may contain grammatical, syntax or spelling errors. Any formal questions or concerns about the content, text or information contained within the body of this dictation should be directly addressed to the provider for clarification History of Present Illness Chief Complaint: Fall from height Primary Care Provider: Jeremy Rubio DO History obtained from chart review and interview with the patient. Past medical history of CAD status post stent of LAD in September 2010, dyslipidemia, Patient presents from home after he felt down from a ladder; fell onto his right side. He reported some anterior chest pain. Denies hitting his head. He suffered abrasion on his right elbow, bilateral shins He denies any dizziness, visual changes, neck pain, abdominal pain, discharge from any orifice, weakness/numbness of any body part. Imaging studies during the ED stay showed multiple acute anterior rib fracture and cartilage fracture. He was being planned to transfer to [facility] and was accepted for transfer. However, transportation was not available; patient was then referred to be admitted here. Allergies Allergy/AdvReac Type Severity Reaction Status Date / Time metoprolol Allergy Intermediate ITCHY Verified 01/11/15 09:56 Home Medications Medication Instructions Recorded Confirmed Type ASPIRIN (ASPIRIN CHEWABLE) 81 mg PO QAM ##0 01/16/12 03/29/24 History B12 1 tab PO DIRECTED 03/29/24 03/29/24 History Fish Oil 1 cap PO DIRECTED 03/29/24 03/29/24 History levothyroxine 88 mcg tablet 88 mcg PO QAM 03/29/24 03/29/24 History multivitamin 1 tab PO DAILY 03/29/24 03/29/24 History rosuvastatin 40 mg tablet 40 mg PO DAILY 03/29/24 03/29/24 History Past Med/Surg History Problem List Abrasion (Acute) Fall (Acute) Right rib fracture (Acute) Right-sided chest pain (Acute) Medical History Coronary artery disease Social History Smoking Status: Never smoker Review of Systems Review of Systems: All systems reviewed & are unremarkable except as noted in Subjective Physical Exam Physical Exam: Constitutional: Alert oriented x 3; not in distress. Respiratory: normal respiratory effort, lungs clear to auscultation, no wheeze, rales, rhonchi. Normal insp/exp effort, no accessory muscle use Cardiovascular: RRR, no murmur, no edema Vessels: no JVD or carotid bruit Chest: Tenderness in anterior part of right chest. Abdomen: normal bowel sounds, soft, nontender, no hepatosplenomegaly Musculoskeletal: Abrasions present on right elbow, bilateral shins, palmar aspect of proximal left fourth finger Neurologic: PERRL, EOMI, accommodation nl, no face palsy, no dysarthria CN's II- XI intact bilaterally and moves all extremities Psychiatric: A+Ox3, euthymic affect Results & Data Results & Data Vital Signs (Past 12 Hours) Vital Signs Temp Pulse Pulse Resp BP BP Pulse Ox 03/29/24 15:00 59 L 14 130/76 97 03/29/24 14:42 59 L 16 130/76 95 03/29/24 13:06 65 15 135/79 03/29/24 12:48 65 12 03/29/24 12:33 75 19 03/29/24 12:24 69 12 03/29/24 12:18 64 14 03/29/24 11:54 71 13 03/29/24 11:36 65 16 147/86 H 99 03/29/24 11:12 78 15 98 03/29/24 11:03 73 14 97 03/29/24 10:54 73 15 96 03/29/24 10:14 65 03/29/24 10:06 72 19 97 03/29/24 10:04 62 16 97 03/29/24 10:04 69 96 03/29/24 09:59 36.5 C 72 16 137/86 96 03/29/24 09:32 70 16 98 03/29/24 09:32 97 03/29/24 09:32 36.5 C 70 16 137/86 98 O2 Del Method O2 Flow Rate 03/29/24 15:00 Room Air 03/29/24 14:42 Room Air 03/29/24 13:06 03/29/24 12:48 03/29/24 12:33 03/29/24 12:24 03/29/24 12:18 03/29/24 11:54 03/29/24 11:36 Room Air 03/29/24 11:12 03/29/24 11:03 03/29/24 10:54 03/29/24 10:14 03/29/24 10:06 03/29/24 10:04 Room Air 03/29/24 10:04 Room Air 03/29/24 09:59 Room Air 0 03/29/24 09:32 Room Air 03/29/24 09:32 Room Air 03/29/24 09:32 Room Air (1) Right rib fracture Encounter type: initial encounter Fracture type: closed Rib fracture type: multiple ribs Qualified Code(s): S22.41XA - Multiple fractures of ribs, right side, initial encounter for closed fracture (2) Fall Encounter type: initial encounter Qualified Code(s): W19.XXXA - Unspecified fall, initial encounter
[2024-03-29] MEDS: ROSUVASTATIN CALCIUM 20 MG TAB PO SCH (19:03)
--- NOTE | 2024-03-29 19:57 | Electrocardiogram Report ---
Test Reason : Blood Pressure : */* mmHG Vent. Rate : 56 BPM Atrial Rate : 56 BPM P-R Int : 264 ms QRS Dur : 88 ms QT Int : 404 ms P-R-T Axes : 39 59 47 degrees QTcB Int : 389 ms Sinus bradycardia with sinus arrhythmia with 1st degree A-V block Cannot rule out Anterior infarct , age undetermined Abnormal ECG When compared with ECG of 16-Jan-2012 06:12, No significant change Confirmed by Misha Darby ([id number]) on 03/29/2024 7:57:23 PM Referred By: REFERRED SELF Confirmed By: Misha Darby
[2024-03-29] MEDS: ACETAMINOPHEN 325 MG TAB PO PRN (23:02)
[2024-03-30] MEDS: LEVOTHYROXINE SODIUM 88 MCG TABLET PO SCH (05:52)
[2024-03-30 06:45] LABS: Basophils # (auto) 0.03 K/uL (0.00-0.20); Basophils % (auto) 0.4 %; Eosinophils # (auto) 0.11 K/uL (0.00-0.50); Eosinophils % (auto) 1.3 %; Hematocrit (blood only) 46.5 % (42.0-52.0); Immature Granulocytes # (auto) 0.02 K/uL (0.01-0.20); Immature Granulocytes % (auto) 0.2 %; Lymphocytes # (auto) 1.66 K/uL (1.20-3.40); Lymphocytes % (auto) 20.3 %; Mean Corpuscular Hemoglobin 29.9 pg (25.0-34.0); Mean Corpuscular Hgb Conc 34.4 g/dL (32.0-36.0); Mean Corpuscular Volume 86.9 fL (80.0-100.0); Monocytes # (auto) 0.74 K/uL (0.11-0.59); Neutrophils # (auto) 5.63 K/uL (1.40-6.50); Neutrophils % (auto) 68.8 %; Platelet Count 196 K/uL (130-400); RDW Coefficient of Variation 13.5 % (11.5-14.5); RDW Standard Deviation 43.2 fL (36.4-46.3); Red Blood Count 5.35 M/uL (4.70-6.10); White Blood Count 8.19 K/ul (4.8-10.8)
[2024-03-30 07:05] LABS: Albumin Globulin Ratio 1.7 (0.9-2); Albumin Level 4.7 gm/dl (3.4-5.0); BUN Creatinine Ratio 10.1 (10-20); Bilirubin,Total 0.8 mg/dl (0.2-1.0); Calcium 9.9 mg/dl (8.6-10.3); Creatinine Clr Calc Pharmacy 70.6 ml/min; Est GFR (African American) 85.7 ml/min; Est GFR (Non-African American) 73.9 ml/min; Globulin 2.7 gm/dl (2.5-4.0); Potassium 3.9 mmol/L (3.5-5.1); Total Protein 7.4 gm/dl (6.0-8.3)
--- NOTE | 2024-03-30 07:19 | XRay Report ---
XR shoulder RT min 2V routine CLINICAL HISTORY: fall. right shoulder pain COMPARISON: Chest CT March 29, 2024. FINDINGS: Alignment of the right shoulder is anatomic. There is no acute fracture. A 4 mm ossicle al jillian the superior glenoid is present. There is mild joint space narrowing and osteophytosis of the rig ht acromioclavicular joint. Several acute anterior right-sided rib fractures are better depicted on c hest CT. IMPRESSION: 1. No acute fracture within the right shoulder. No dislocation. 2. 4 mm ossicle along the superior glenoid, likely chronic. 3. Several acute anterior right-sided rib fractures are better depicted on chest CT. ACT 112: Negative or not required by law. Electronically signed by: Amadou Cabral M.D. 03/30/2024 7:17 AM
[2024-03-30 08:36] VITALS: BP 113/68; RESP 17; TEMP 98.1; O2SAT 97
[2024-03-30] MEDS: OMEGA-3 (PURIFIED FISH OIL) 1 GM CAP PO SCH (08:56)
[2024-03-30] MEDS: MULTIVITAMIN TAB PO SCH (08:56)
[2024-03-30] MEDS: CYANOCOBALAMIN (B-12) 500 MCG TABLET PO SCH (08:56)
[2024-03-30] MEDS: ASPIRIN 81 MG CHEW PO SCH (08:56)
--- NOTE | 2024-03-30 09:42 | XRay Report ---
XR chest 2V PA/lateral HISTORY: 58 years-old Male Follow up on rib fractures follow-up study in a patient with acute right- sided rib fractures COMPARISON: Chest CT March 29, 2024 TECHNIQUE: PA and lateral views of the chest FINDINGS: Acute right-sided rib fractures redemonstrated, some of which are mildly displaced. Alignment is over all unchanged. No pneumothorax, or pleural effusion. The lungs appear clear. Cardiac silhouette is un changed. IMPRESSION: 1. Acute right-sided rib fractures redemonstrated. 2. No pneumothorax identified. ACT 112: Negative or not required by law. The above report was generated using voice recognition software. It may contain grammatical, syntax o r spelling errors. Electronically signed by: George Gagnon M.D. 03/30/2024 9:39 AM
--- NOTE | 2024-03-30 10:32 | Discharge Summary ---
Date of Service March 30, 2024 Admission HPI Per Admitting Provider History obtained from chart review and interview with the patient. Past medical history of CAD status post stent of LAD in September 2010, dyslipidemia, Patient presents from home after he felt down from a ladder; fell onto his right side. He reported some anterior chest pain. Denies hitting his head. He suffered abrasion on his right elbow, bilateral shins He denies any dizziness, visual changes, neck pain, abdominal pain, discharge from any orifice, weakness/numbness of any body part. Imaging studies during the ED stay showed multiple acute anterior rib fracture and cartilage fracture. He was being planned to transfer to [facility] and was accepted for transfer. However, transportation was not available; patient was then referred to be admitted here. Principal Diagnosis Traumatic rib fractures Discharge Exam Constitutional: Alert oriented x 3; not in distress. Respiratory: normal respiratory effort, lungs clear to auscultation, no wheeze, rales, rhonchi. Normal insp/exp effort, no accessory muscle use Cardiovascular: RRR, no murmur, no edema Vessels: no JVD or carotid bruit Chest: Tenderness in anterior part of right chest. Abdomen: normal bowel sounds, soft, nontender, no hepatosplenomegaly Musculoskeletal: Abrasions present on right elbow, bilateral shins, palmar aspect of proximal left fourth finger. painful ROM on right shoulder Neurologic: PERRL, EOMI, accommodation nl, no face palsy, no dysarthria CN's II- XI intact bilaterally and moves all extremities Psychiatric: A+Ox3, euthymic affect Discharge Data Allergies Allergy/AdvReac Type Severity Reaction Status Date / Time metoprolol Allergy Intermediate ITCHY Verified 01/11/15 09:56 Consultations 03/29/24 16:44 ED Decision to Admit Stat Ordered Studies 03/29/24 10:00 CT abd pelvis IV con only Stat CT cervical spine wo con Stat CT chest diagnostic w con Stat CT head/brain wo con Stat 03/30/24 03:58 MR shoulder RT wo con Routine Hospital Course (1) Right rib fracture: (2) Fall: Plan Patient presents from home after he felt down from a ladder; fell onto his right side. He reported some anterior chest pain. Imaging studies during the ED stay showed multiple acute anterior rib fracture and cartilage fracture. He was being planned to transfer to [facility] and was accepted for transfer. However, transportation was not available; patient was then referred to be admitted here. Patient was hospitalized in medical floor; Pain control with Tylenol, Toradol and morphine for mild to moderate and severe pain. He was monitored for oxygenation, severe chest pain, abdominal pain. Denies any pain; spo2 remained stable MRI of the shoulder was ordered due to painful ROM. Discussion was done with [facility] again on 03/30/2024. Images were sent over for review. Recommended to be transferred to be evaluated by trauma there. Patient accepted under Dr. Zaragoza. Please note the above document was generated using voice recognition software. It may contain grammatical, syntax or spelling errors. Any formal questions or concerns about the content, text or information contained within the body of this dictation should be directly addressed to the provider for clarification Total Time Total Time Spent Total Time Spent (In Minutes): 56 Total Time Includes: Examination of the Patient, Discharge Planning, Medication Reconciliation, Communication With Other Providers and Other Discharge Plan Discharge Items Patient Disposition: Transfer Acute Care Hospital Reason For Visit: RIB FRACTURES Discharge Diagnosis: Fall Rib fractures Condition on Discharge: Fair Activity: Resume your previous activity Non-emergency contact: Primary Care Provider Call non-emergency contact if: you have any medication questions and your symptoms worsen Follow-up/Referrals: Jeremy Rubio, [Primary Care Provider] - Diet: Regular Addtl Attending Provider Instructions: Please follow up with PCP after discharge from the hospital Pending Studies at Discharge: No Stand-Alone Forms: [facility] Patient informed of condition?: Yes DNR: No Discharge Level of Care: Other Communicable Disease: No Discharge Prognosis: Stable Lines: Peripheral IV Urinary Catheter: No Medications and DC Order Prescriptions: Continued ASPIRIN (ASPIRIN CHEWABLE) 81 MG CHEWABLE TAB 81 mg PO QAM Qty: 0 levothyroxine 88 mcg tablet 88 mcg PO QAM rosuvastatin 40 mg tablet 40 mg PO DAILY B12 1 tab PO DIRECTED Rx Instructions: otc unknown dose multivitamin Tablet 1 tab PO DAILY Fish Oil 1 cap PO DIRECTED Rx Instructions: otc unknown dose Discharge Orders: Discharge Order (Routine); Ordered 03/30/24 Ordered By: Migel Salazar Admission Data Admit Date/Time: 03/29/24 17:00 Attending Provider: Migel Salazar Admit Provider: Migel Salazar Primary Care Provider: Jeremy Rubio Other Providers: Migel Salazar Other Interventions: Discharge Summary Assessment (RN) Last Done: 03/30/24 10:46
[2024-03-30 10:50] VITALS: PULSE 60
--- NOTE | 2024-03-30 15:08 | Magnetic Resonance Report ---
MR shoulder RT wo con CLINICAL HISTORY: 58 years-old Male with fall, painful movements. Acute right shoulder pain status p ost fall. COMPARISON: Radiographs and chest CT March 29, 2024. TECHNIQUE: Multiplanar, multi sequence MRI of the right shoulder was performed without intravenous co ntrast. FINDINGS: ROTATOR CUFF: SUPRASPINATUS: 8 x 9 mm high-grade partial thickness articular sided tearing of the anterior to mid i nsertional fibers, image 9 series 6 and image 6 series 9. This finding is technically age-indetermina te. No full thickness tear, tendon retraction or muscle atrophy. Mild tendinosis. INFRASPINATUS: Mild tendinosis. No high-grade partial or full-thickness tear. No muscle atrophy or te ndon retraction. SUBSCAPULARIS: No high-grade partial or full-thickness tear. No retraction or muscle atrophy. TERES MINOR: Intact. BICEPS TENDON: The longhead biceps tendon is intact. Mild tendinosis. The biceps temitope and anchor are intact. LABRUM: Suboptimal evaluation of the glenoid labrum without intra-articular contrast. There is degen eration with tearing of the labrum extending anterior to posterior. Mild adjacent edema. There is als o irregularity of the anteroinferior labrum with mild edema along the anterior aspect of the inferior glenohumeral ligament. No full thickness tear. There is no evidence for a paralabral cyst. GLENOHUMERAL JOINT: There is minimal osteoarthritis. There is no large glenohumeral joint effusion. There is no loose body or debris present within the glenohumeral joint. ACROMIOCLAVICULAR JOINT: Mild to moderate degeneration of the AC joint. Capsular hypertrophy with ma rginal osteophytic spurring and mild likely degenerative marrow edema. No evidence of os acromiale. M ild to moderate amount of fluid within the subacromial/subdeltoid bursa. OUTLET SPACES: The suprascapular notch and quadrilateral space are without obstructing or space occu pying lesions. BONE MARROW: No acute fracture identified. Marrow edema of the AC joint. Acute right-sided rib fract ures are better seen on the comparison chest CT. SOFT TISSUES: Soft tissue edema as above. IMPRESSION: 1. Acute right-sided rib fractures are better seen on the comparison chest CT. 2. Age-indeterminate high-grade partial thickness articular sided tearing of the insertional supraspi natus as above. No full-thickness tear or tendon retraction. 3. [id number] amount of edema within the subacromial/subdeltoid bursa. 4. Likely acute SLAP tear, suboptimally evaluated without intra-articular contrast. ACT 112: Negative or not required by law. The above report was generated using voice recognition software. It may contain grammatical, syntax o r spelling errors. Dictated: 03/30/2024 1:07 PM Transcribed: 03/30/2024 1:30 PM Maeve [id number] Tana [id number] Electronically signed by: George Gagnon M.D. 03/30/2024 3:06 PM
== END 2024-03-30 13:19 | disposition short-term general hospital (02) | DRG 185 ==
LOC: ED 09:39 → 2S 17:00